=== PATIENT | female | born 1980 | race Caucasian/White ===

== ENCOUNTER 2017-04-19 04:09 | Inpatient (IN) ==
[2017-04-19 01:29] LABS: Amphetamine Screen,Urine Negative ng/mL (Cutoff=1000); Barbiturate Screen,Urine Negative ng/mL (Cutoff=200); Benzodiazepines Screen,Urine Negative ng/mL (Cutoff=200); Cannabinoid Screen,Urine Negative ng/mL (Cutoff = 50); Cocaine Screen,Urine Negative ng/mL (Cutoff= 300); Opiate Screen,Urine Negative ng/mL (Cutoff=300); Phencyclidine Screen,Urine Negative ng/mL (Cutoff=25)
[2017-04-19 03:29] LABS: Alanine Aminotransferase 9 Units/L (0-55); Aspartate Amino Transferase 13 Units/L (5-34); BUN/Creatinine Ratio 10 (6-26); Blood Urea Nitrogen 6 mg/dL (7-20); Lactate Dehydrogenase 184 Units/L (159-327); Uric Acid 3.9 mg/dL (2.6-6.0); eGFR For African Americans > 60 (> 60); eGFR For Non-African Americans > 60 (> 60)
[2017-04-19 03:30] LABS: Protein/Creatinine Ratio,Urine 0.28 mg/mg (0-0.20)
[2017-04-19 03:30] LABS: Basophils % 0.2 %; Eosinophils # 0.2 K/mcL (0.0-0.6); Eosinophils % 1.7 %; Hematocrit 30.9 % (35.3-44.9); Hemoglobin 9.5 g/dL (11.5-15.4); Immature Granulocytes % 0.5 % (0-4); Lymphocytes # 1.8 K/mcL (0.6-4.6); Lymphocytes % 14.7 %; Mean Corpuscular HGB Conc 30.7 g/dL (31.6-35.5); Mean Corpuscular Hemoglobin 24.4 pg (28.0-33.3); Mean Corpuscular Volume 79.4 fL (83.0-100.0); Mean Platelet Volume 11.2 fL (9.4-12.4); Monocytes # 0.7 K/mcL (0.0-1.3); Monocytes % 5.3 %; Platelet Count 235 K/mcL (140-400); Red Blood Count 3.89 M/mcL (3.82-4.97); Segmented Neutrophils % 77.6 %
[2017-04-19 03:55] LABS: Hypochromasia Present (Not Present); Large Platelets Present (Not Present); Microcytosis Present (Not Present); Neutrophils # 9.5 K/mcL (1.6-8.9); Platelet Clumps Few (Not Present)
[~2017-04-19 04:09] MED LIST: Famotidine 20 MG/2 ML VIAL IVP PRN; Metoclopramide 10 MG/2 ML VIAL IVP PRN; Naloxone 0.4 MG/ML INJ IVP PRN; Penicillin G Potassium 5,000,000 UNIT in D5% in Water (Mini-Bag+) 100 ML IVPB ONE
[2017-04-19] MEDS ORDERED: Ringers Solution, Lactated 1,000 ML IVC SCH (04:15)
--- NOTE | 2017-04-19 06:34 | OB/GYN History & Physical ---
Date of Encounter: 04/19/17 Time of Encounter: 06:25 Assessment and Plan (1) 36 weeks gestation of Current visit: Yes Status: Acute Admitted for spontaneous labor (2) Large for gestational age fetus affecting mother, antepartum, third trimester, single gestation Current visit: Yes Status: Acute 34 week ultrasound fetus 90%tile (3) Group B streptococcal infection in mother during Current visit: Yes Status: Acute PCN per protocol (4) AMA (advanced maternal age) multigravida 35+ Current visit: Yes Status: Acute Patient seen MFM and genetic screening WNL Qualifiers: Trimester: third trimester Qualified Code(s): O09.523 - Supervision of elderly multigravida, third trimester History of Present Illness Chief complaint: Spontaneous labor HPI: Ms. Sewell is a 36 year old female at 36w4d presents to labor and delivery with c/o contractions that started around 2200 on 04/18/2017. Patient denies LOF or VB. Patient reports +FM. Patient is AMA, LGA and GBS + in initial urinalysis in office. Blood type: B Negative, Rubella: Immune, Hep B: nonreactive, GBS: Positive. PCN protocol started at 0445. Past Med Surg Social Fam HX - Past Medical History Source: patient Medical history: no medical history Psychiatric history: depression - Past Surgical History Surgical History: no surgical history - Social History Smoking Status: Never smoker Smokeless Tobacco Status: No Alcohol use: none Drug use: none Occupational status: employed Current living situation: Home - Independent Activity Level: Independent ambulation Recent Out of Country Travel Within the Last 8 Weeks: No Exposure or Possible Exposure to Illness During Travel: No - Family History Mother Living Status: Still Living Obstetrical History - Pregnancies : 4 Para: 3 Term: 3 : 0 Ab's: 0 Livin Medications and Allergies Citalopram Hydrobromide [Celexa] 40 mg PO DAILY 04/19/17 [History] Vit/Iron Fumarate/FA [ Tablet] 1 each PO DAILY 04/19/17 [ History] 3 Allergy/AdvReac Type Severity Reaction Status Date / Time doxycycline AdvReac Rash Verified 04/19/17 01:06 Review of System OB - Constitutional Constitutional ROS IM: no fever(s), no headache(s) - Cardiovascular Cardiovascular: no chest pain, no edema, no lightheadedness, no palpitations, no syncope - Respiratory Respiratory: no dyspnea - Gastrointestinal Gastrointestinal: no constipation, no diarrhea, no heartburn, no nausea, no vomiting - Genitourinary Genitourinary: no abnormal vaginal bleeding, no dysuria, no flank pain, no vaginal discharge, no vaginal odor, no vaginal pruritis Exam - Constitutional Constitutional: well developed, well nourished, no acute distress, average body habitus - HEENT HEENT: Normocephaly, Mucus Membranes Moist - Neck Neck exam: full ROM, supple - Lungs Respiratory exam: CTAB - Cardiovascular Cardiovascular exam: RRR, +S1, +S2 - Abdomen Abdomen: Present: bowel sounds normal, gravid, non tender - Extremities Extremities exam: full ROM, normal capillary refill, normal inspection Deep Tendon Reflex Grade: 2+ Normal - Cervix Dilation: 7 Effacement: 90 Station: -1 - Uterus Uterus exam: Present: normal size, normal contour - Anus/Rectum Anus/Rectum: Present: normal perianal skin - Comments Comments: FHR 145 bpm moderate variability +15x15 accels no decels noted. Contractions 1- 3 min apart. CAt. 1 tracing. Results Result Diagrams: 04/19/17 03:04 04/19/17 03:04 Abnormal lab results WBC 12.2 K/mcL (4.3-11.1) H 04/19/17 03:04 Hgb 9.5 g/dL (11.5-15.4) L 04/19/17 03:04 Hct 30.9 % (35.3-44.9) L 04/19/17 03:04 MCV 79.4 fL (83.0-100.0) L 04/19/17 03:04 MCH 24.4 pg (28.0-33.3) L 04/19/17 03:04 MCHC 30.7 g/dL (31.6-35.5) L 04/19/17 03:04 Neutrophils # 9.5 K/mcL (1.6-8.9) H 04/19/17 03:04 Clumped Platelets Few (Not Present) A 04/19/17 03:04 Large Platelets Present (Not Present) A 04/19/17 03:04 Hypochromasia Present (Not Present) A 04/19/17 03:04 Microcytosis Present (Not Present) A 04/19/17 03:04 BUN 6 mg/dL (7-20) L 04/19/17 03:04 Protein/Creatinin Ratio 0.28 mg/mg (0-0.20) H 04/19/17 02:57 Urine Total Protein 45 mg/dL (1-14) H 04/19/17 02:57 All other labs normal. - VTE Reasons for not Prescribing Prophylaxis: Treatment not Indicated - Low risk for VTE
[2017-04-19] MEDS ORDERED: Bupivacaine-MPF 0.25% 10 ML VIAL ONE (06:48)
[2017-04-19] MEDS ORDERED: Epidural Premix (fent/bupiv) 110 ML EP ONE ×2 (06:48→13:12)
[2017-04-19] MEDS ORDERED: *HR* FentaNYL (PF) 100 MCG/2 ML VIAL ONE (06:48)
--- NOTE | 2017-04-19 07:35 | Anesthesia Evaluation PreOp ---
Date of Encounter: 04/19/17 Time of Encounter: 07:32 - Past History Planned Operation: OCTAVIO Cardiac History: Denies any Significant Hx Pulmonary History: Denies Any Significant HX BLOCK BREAKER OPERATOR History: Denies Any Significant HX Other Medical History: Denies Any Significant HX Anesthesia History: No Prior Anesthetic Complications (denies personal h/o RA or GA complications; denies family h/o GA complications), Past Anesthesia (OCTAVIO x 2; GA x 1) : Yes Test: Positive Alcohol Use: none Drug use: none Medications and Allergies Citalopram Hydrobromide [Celexa] 40 mg PO DAILY 04/19/17 [History] Vit/Iron Fumarate/FA [ Tablet] 1 each PO DAILY 04/19/17 [ History] 3 Allergy/AdvReac Type Severity Reaction Status Date / Time doxycycline AdvReac Rash Verified 04/19/17 01:06 - Meds/Allergy Pre-op Review Medications Reviewed: Yes Allergies Reviewed: Yes Beta Blockers on Current Med List: No Anesthesia Results - Labs 04/19/17 03:04 04/19/17 03:04 Anesthesia Exam 131/86, HR 94 O2 Sat Height 1.7 m Weight 82.554 kg NPO (# of Hours): solids > 8hrs Pain Scale: 6 Pain Scale Used: Numeric (1 - 10) - HEENT Pupil (Motor): Pupils equal Mallampati: II Teeth: Normal Oral Opening: Greater than 3 - BLOCK BREAKER OPERATOR LOC: Oriented BLOCK BREAKER OPERATOR Motor: Normal RUE, Normal LUE, Normal RLE, Normal LLE, Normal Face BLOCK BREAKER OPERATOR Sensory: Normal: RUE, LUE, RLE, LLE, Face - Cardiac Rhythm: Regular Murmur: None - Pulmonary Breath Sounds: bilateral Clear Respiratory Effort: Symmetrical Anesthesia Assess/Plan ASA Score: 2 Modified Parag Scale for Level of Consciousness: Cooperative, oriented, and tranquil Anesthetic Plan: Regional Autologous Blood: No Monitoring Plan: Standard Monitors Recovery Plan: Other
[2017-04-19] MEDS ORDERED: Bupivacaine-MPF 0.25% 10 ML VIAL EP ONE (07:38)
[2017-04-19] MEDS ORDERED: *HR* FentaNYL (PF) 100 MCG/2 ML VIAL EP ONE (07:38)
--- NOTE | 2017-04-19 07:38 | Anesthesia Procedures ---
Date of Encounter: 04/19/17 Time of Encounter: 07:36 Procedures: Anesthesia - Epidural/Spinal Patient ID/Chart reviewed: Yes Patient examined: Yes OB Eval: Gestational age: 36 weeks 4 days OB Eval: : 4 OB Eval: Hx Para: 3 OB Eval: Dilated at (cm): 7 OB Eval: Contractions: Non-stressed pattern Consent Obtained: Yes Supplemental Oxygen: None/Room Air Site Prep: Aseptic Technique, Sterile prep and drape, Povidone-Iodine 1% Patient position: upright Local Anesthetic: Lidocaine 1% Amount of Local Anesthetic used: 3 Touhy Needle Gauge: 18 Touhy Needle Depth (cm): 4 Catheter Depth at Skin (cm): 10 Test Dose (1.5% Lido + Epi): Volume given (mls): 3 Test Dose Result: Negative Loading Dose: 0.25% Marcaine (mls): 5 Loading Dose: Fentanyl (mcg): 100 Loading Dose Administered: Thru Catheter Infusion Med: 0.125% Bupivacaine w/ 2 mcg/ml Fentanyl Infusion Rate (mls/hr): 14 (w/ demand bolus of 5mL q30min PRN) Catheter Secured in Place: Tegaderm, Tape Interspace Used: L3-L4 Loss of Resistance (JERONIMO): Yes Blood: No CSF: No Paresthesia: No Vitals + FHT's: please see Ana Maria HANSEN's electronic documentation for VS
[2017-04-19] MEDS ORDERED: Epidural Premix (fent/bupiv) 110 ML EP SCH (07:45)
[2017-04-19] MEDS ORDERED: EPHEDrine 50 MG/ML VIAL ONE (08:17)
[2017-04-19] MEDS: Penicillin G Potassium 2,500,000 UNIT in D5% in Water 100 ML IVPB SCH ×2 (08:26→12:41)
[2017-04-19] MEDS ORDERED: Acetaminophen 325 MG TABLET PO PRN ×2 (12:02→18:54)
--- NOTE | 2017-04-19 12:13 | OB Labor Progress Note ---
Date of Encounter: 04/19/17 Time of Encounter: 12:12 Labor Progress Note - Subjective Subjective: Pt comfortable with epidural. - Cervix Cervix: 9/90/0 - Heart Tones Heart Tones: Category I - [place]: irregular - Interventions Interventions: IUPC placed - Plan Plan: Will augment with pitocin if needed. Anticipate .
[2017-04-19] MEDS ORDERED: Oxytocin 20 units/ LR 1000 mL 20 UNIT/1,000 ML BAG IVC SCH ×2 (13:00→18:54)
--- NOTE | 2017-04-19 16:17 | OB/GYN Procedure Note ---
Delivery - Delivery Date: 04/19/17 Provider: Cali Horner Intrapartum events: none Delivery induction: AROM Delivery monitor: external uterine, internal FHT Anesthesia: epidural Estimated Blood Loss: 300 - Infant (s) Infant A Delivery Date: 04/19/17 Infant Delivery Time: 15:54 Presentation: vertex Position: OP Route of delivery: Gender: Male Viability: Viable Pounds: 8 Ounces: 2 at 1 minute: 8 at 5 mins: 9 Shoulder Dystocia: not encountered Specimens collected: cord blood Placenta: spontaneous - Repair Episiotomy: none Laceration Description: None - Complications Delivery complications: none - Disposition Mom disposition: stable in LDR disposition: stable in LDR - Comments Comments: Pt s/p of liveborn male from direct OP presentation. No dystocia. No lacerations. Spontaneous delivery of normal placenta. EBL 300cc. Mother and infant recovered in LDR.
[2017-04-19] MEDS ORDERED: Measles/Mumps/Rubella Vacc 0.5 ML VIAL SQ PRN (18:54)
[2017-04-19] MEDS ORDERED: Rho Immune Globulin 1,500 UNIT SYRINGE IM PRN (18:54)
[2017-04-19] MEDS ORDERED: Ibuprofen 600 MG TABLET PO PRN (21:13)
[2017-04-19] MEDS: Ibuprofen 600 MG TABLET PO PRN (21:31)
[2017-04-20 05:43] LABS: Basophils % 0.1 %; Eosinophils # 0.2 K/mcL (0.0-0.6); Hematocrit 26.7 % (35.3-44.9); Hemoglobin 8.2 g/dL (11.5-15.4); Immature Granulocytes % 0.5 % (0-4); Lymphocytes # 1.7 K/mcL (0.6-4.6); Lymphocytes % 14.3 %; Mean Corpuscular HGB Conc 30.7 g/dL (31.6-35.5); Mean Corpuscular Hemoglobin 24.5 pg (28.0-33.3); Mean Corpuscular Volume 79.7 fL (83.0-100.0); Mean Platelet Volume 10.3 fL (9.4-12.4); Monocytes # 0.7 K/mcL (0.0-1.3); Monocytes % 5.8 %; Neutrophils # 9.3 K/mcL (1.6-8.9); Platelet Count 305 K/mcL (140-400); Red Blood Count 3.35 M/mcL (3.82-4.97); Red Cell Distribution Width 14.1 % (11.5-14.5); Segmented Neutrophils % 77.3 %
[2017-04-20] MEDS: Ibuprofen 600 MG TABLET PO PRN (08:12)
--- NOTE | 2017-04-20 08:27 | Discharge Summary ---
Date of Encounter: 04/20/17 Time of Encounter: 08:25 - Discharge Diagnosis (1) Status post vaginal delivery Priority: Primary Status: Acute Comments: s/p , patient doing very well, ok for discharge - Discharge Medications Prescriptions: Breast Pump [BREAST PUMP] 1 each .ROUTE AD #1 each Home Medications: Citalopram Hydrobromide [Celexa] 40 mg PO DAILY 04/19/17 [History] Vit/Iron Fumarate/FA [ Tablet] 1 each PO DAILY 04/19/17 [ History] Breast Pump [BREAST PUMP] 1 each .ROUTE AD #1 each 04/20/17 [Rx] Allergies/Adverse Reactions: 3 Allergy/AdvReac Type Severity Reaction Status Date / Time doxycycline AdvReac Rash Verified 04/19/17 01:06 Data Procedures and tests throughout hospitalization: Laboratory Tests 04/19/17 04/19/17 04/19/17 01:13 02:57 03:04 WBC 12.2 H RBC 3.89 Hgb 9.5 L Hct 30.9 L MCV 79.4 L MCH 24.4 L MCHC 30.7 L RDW 14.0 Plt Count 235 MPV 11.2 Immature Gran % 0.5 Seg Neutrophils % 77.6 Lymphocytes % 14.7 Monocytes % 5.3 Eosinophils % 1.7 Basophils % 0.2 Neutrophils # 9.5 H Lymphocytes # 1.8 Monocytes # 0.7 Eosinophils # 0.2 Basophils # 0.0 Clumped Platelets Few A Large Platelets Present A Hypochromasia Present A Microcytosis Present A BUN Creatinine Est GFR ( Amer) Est GFR (Non-Af Amer) BUN/Creatinine Ratio Uric Acid AST ALT Lactate Dehydrogenase Urine Creatinine 160 Protein/Creatinin Ratio 0.28 H Urine Total Protein 45 H Urine Opiates Screen Negative Ur Barbiturates Screen Negative Ur Phencyclidine Scrn Negative Ur Amphetamines Screen Negative U Benzodiazepines Scrn Negative Urine Cocaine Screen Negative U Marijuana (THC) Screen Negative Baby's Blood Type Mother's Blood Type Rhogam Indicated 04/19/17 04/19/17 04/20/17 03:04 18:07 05:32 WBC 12.0 H RBC 3.35 L Hgb 8.2 L Hct 26.7 L MCV 79.7 L MCH 24.5 L MCHC 30.7 L RDW 14.1 Plt Count 305 MPV 10.3 Immature Gran % 0.5 Seg Neutrophils % 77.3 Lymphocytes % 14.3 Monocytes % 5.8 Eosinophils % 2.0 Basophils % 0.1 Neutrophils # 9.3 H Lymphocytes # 1.7 Monocytes # 0.7 Eosinophils # 0.2 Basophils # 0.0 Clumped Platelets Large Platelets Hypochromasia Microcytosis BUN 6 L Creatinine 0.58 Est GFR ( Amer) > 60 Est GFR (Non-Af Amer) > 60 BUN/Creatinine Ratio 10 Uric Acid 3.9 AST 13 ALT 9 Lactate Dehydrogenase 184 Urine Creatinine Protein/Creatinin Ratio Urine Total Protein Urine Opiates Screen Ur Barbiturates Screen Ur Phencyclidine Scrn Ur Amphetamines Screen U Benzodiazepines Scrn Urine Cocaine Screen U Marijuana (THC) Screen Baby's Blood Type B RH NEGATIVE Mother's Blood Type B RH NEGATIVE Rhogam Indicated NO Labs on day of discharge: Labs from last 24 hours 04/20/17 04/19/17 05:32 18:07 WBC 12.0 H RBC 3.35 L Hgb 8.2 L Hct 26.7 L MCV 79.7 L MCH 24.5 L MCHC 30.7 L RDW 14.1 Plt Count 305 MPV 10.3 Immature Gran % 0.5 Seg Neutrophils % 77.3 Lymphocytes % 14.3 Monocytes % 5.8 Eosinophils % 2.0 Basophils % 0.1 Neutrophils # 9.3 H Lymphocytes # 1.7 Monocytes # 0.7 Eosinophils # 0.2 Basophils # 0.0 Baby's Blood Type B RH NEGATIVE Mother's Blood Type B RH NEGATIVE Rhogam Indicated NO Date of admission: 04/19/17 04:09 Primary care physician: Leatha Hernandez Consults: 04/19/17 18:54 Consult to Car Customizer [CONS] Routine Comment: Vaginal delivery, consult needed - Patient Status Disposition: Home, Self-Care Condition: Good Functional capacity at discharge: independent ambulation Overall status at discharge: patient is progressing back to baseline - Discharge Instructions Follow Up With: Leatha Hernandez MD [Primary Care Provider] - Hospital Course FURNACE LOADER Time Attestation: Total time spent providing and/or coordinating discharge services: Exam - Constitutional Vitals: Temp Pulse Resp BP Pulse Ox 97.5 F L 84 16 120/79 99 04/20/17 04:00 04/20/17 04:00 04/20/17 04:00 04/20/17 04:00 04/20/17 04:00 General appearance IM: A&O X 3 - Respiratory Respiratory exam: Present: CTAB - Cardiovascular Cardiovascular exam IM: Present: RRR - GI/Abdominal GI/Abdominal exam IM: normal bowel sounds - VTE Reasons for not Prescribing Prophylaxis: Treatment not Indicated - Low risk for VTE
[2017-04-20] MEDS ORDERED: Prenatal Vit/FA 1 EACH TABLET PO SCH (09:00)
[2017-04-20 17:07] VITALS: BP 114/78
== END 2017-04-20 13:30 | disposition home or self-care (01) | DRG 775 ==
LOC: 1NENULAB → 1NENUOBS 18:40
PROVIDERS: ADMIT Advanced Practice Midwife; ATTEND Advanced Practice Midwife

== ENCOUNTER 2017-06-10 02:44 | Observation (INO) ==
[2017-06-10] MEDS ORDERED: Ondansetron ODT 4 MG TAB.RAPDIS SL ONE (03:20)
[2017-06-10] MEDS ORDERED: Hyoscyamine SL 0.125 MG TAB.SUBL SL STA (03:20)
[2017-06-10 03:33] LABS: Basophils % 0.3 %; Eosinophils # 0.3 K/mcL (0.0-0.6); Eosinophils % 1.8 %; Hematocrit 37.2 % (35.3-44.9); Hemoglobin 11.3 g/dL (11.5-15.4); Immature Granulocytes % 0.3 % (0-4); Lymphocytes # 1.1 K/mcL (0.6-4.6); Lymphocytes % 7.6 %; Mean Corpuscular HGB Conc 30.4 g/dL (31.6-35.5); Mean Corpuscular Hemoglobin 24.8 pg (28.0-33.3); Mean Corpuscular Volume 81.8 fL (83.0-100.0); Mean Platelet Volume 10.4 fL (9.4-12.4); Monocytes # 0.7 K/mcL (0.0-1.3); Monocytes % 4.5 %; Neutrophils # 12.5 K/mcL (1.6-8.9); Platelet Count 364 K/mcL (140-400); Red Blood Count 4.55 M/mcL (3.82-4.97); Red Cell Distribution Width 16.8 % (11.5-14.5); Segmented Neutrophils % 85.5 %
--- NOTE | 2017-06-10 03:37 | Emergency Department Note ---
Disposition Clinical Impression: RUQ pain, Biliary colic, Elevated transaminase level Disposition: Admitted As Inpatient Condition: Undetermined Referrals: Leatha Hernandez MD [Primary Care Provider] - Forms: ED Satisfaction Letter, Work/School Release Time of Disposition: 06:03 Abdominal Pain HPI - General Chief Complaint: ED Abdominal Pain Stated Complaint: Abd Pain, NV Time Seen by Provider: 06/10/17 02:46 Source: patient Mode of arrival: ambulatory Limitations: no limitations Nursing Notes Reviewed: Yes Vital Signs Reviewed: Yes - History of Present Illness HPI Narrative: 36-year-old female with history of previous biliary colic arrives to [facility] emergency department complaining of right upper quadrant pain similar to previous biliary colic in the past that started roughly 4 hours ago. The patient states she ate a powdered doughnut and she began complaining of right upper quadrant pain roughly an hour after that. The patient has been experiencing nausea and vomiting as well. The patient states that this has been ongoing and that is why she came to the emergency department. The patient states she is supposed to have a cholecystectomy in 3 days. Patient denies any other complaints at this time. Pt Subjective Complaint: abdominal pain Onset (ago): hour(s) (3) Consistency: intermittent Location: RUQ Pain Severity: moderate Pain Scale: 7 Quality: cramping Radiation: none Migration to: no migration Improves with: nothing Worsens with: nothing Context: history of similar episodes Associated symptoms: Reports: nausea, vomiting - Related Data Home Medications Medication Instructions Recorded Confirmed Citalopram Hydrobromide [Celexa] 40 mg PO DAILY 04/19/17 04/19/17 Vit/Iron Fumarate/FA 1 each PO DAILY 04/19/17 04/19/17 [ Tablet] Previous Rx's Medication Instructions Recorded Breast Pump [BREAST PUMP] 1 each .ROUTE AD #1 each 04/20/17 Ibuprofen [Motrin] 600 mg PO Q6HR PRN #60 tab 04/20/17 Dicyclomine [Bentyl] 20 mg PO QID PRN #20 capsule 05/16/17 HYDROcodone/Acet 5/325 mg [[place] 1 - 2 tab PO Q4H PRN 7 Days #20 tab 05/16/17 5-325 mg] Allergies Allergy/AdvReac Type Severity Reaction Status Date / Time doxycycline AdvReac Rash Verified 05/15/17 21:55 All systems ED: reviewed and negative except as stated. Constitutional: Denies: fever, chills, weakness ENT ED: Denies: congestion Cardiovascular: Denies: chest pain Respiratory: Denies: dyspnea Gastrointestinal: Reports: abdominal pain, nausea, vomiting. Denies: diarrhea, constipation, hematemesis, melena, hematochezia Genitourinary: Denies: urgency, dysuria Musculoskeletal: Denies: back pain Neurological: Denies: headache Abdominal Pain PMH - Past Medical History Medical history: Reports: no medical history Female Surgical History: Reports: Adenoidectomy, Tonsillectomy Psychiatric history: Reports: depression - Social History Smoking status: Never smoker Alcohol use: Reports: none Drug use: Reports: none Physical Exam - General Limitations: no limitations General appearance: alert, in no apparent distress - Head Head exam: atraumatic, normocephalic, normal inspection - Eye Eye exam: Present: normal appearance, PERRL, EOMI - ENT ENT exam: normal exam, normal oropharynx, mucous membranes moist - Neck Neck exam: Present: normal inspection, full ROM, trachea midline - Chest Chest inspection: Present: normal inspection, symmetric chest wall rise - Respiratory Respiratory exam: Present: normal lung sounds bilaterally - Cardiovascular Cardiovascular exam: Present: regular rate, normal rhythm, normal heart sounds - Abdominal Exam Abdominal exam: Present: soft, tenderness (RUQ). Absent: Non-Tender, distention , guarding, rebound, rigidity, Dao's sign Abdominal tenderness: Present: RUQ, moderate - Extremities Exam Extremities exam: Present: normal inspection, full ROM. Absent: tenderness, pedal edema Course - Reevaluation(s) Reevaluation #1: Patient has been expressing continued pain. She has taken 2 doses of fentanyl as well as Levsin and Zofran. The patient still appears slightly uncomfortable. The patient has new elevation of transaminases. The gallbladder demonstrates no signs of cholecystitis on ultrasound but the patient still remains very comfortable. Given the fact that the patient is due to have a cholecystectomy in 2 days, we will contact surgeon to determine plan of care. Time: 05:21 Vital Signs Temperature 97.4 F L 06/10/17 02:46 Pulse Rate 96 06/10/17 02:46 Respiratory Rate 16 06/10/17 02:46 Blood Pressure 137/93 06/10/17 02:46 O2 Sat by Pulse Oximetry 98 06/10/17 02:46 Temperature 97.4 F L 06/10/17 02:46 Pulse Rate 80 06/10/17 04:56 Respiratory Rate 12 06/10/17 04:56 Blood Pressure 142/97 06/10/17 04:56 O2 Sat by Pulse Oximetry 97 06/10/17 04:56 Oxygen Delivery Oxygen Delivery Room Air Abdominal Pain - MDM Narrative Medical decision making narrative: Workup in the emergency department demonstrates a leukocytosis that is new. In addition the patient has elevated transaminases which is also new. The patient' s bedside ultrasound as well as ultrasound that was formal demonstrate no cholecystitis. Given the patient's new transaminase elevation as well as her cytosis I am concerned that the patient is experiencing symptoms that need to be addressed by the surgeon. After speaking with Dr. bose in surgery, he agreed to admit the patient to his service. He recommended long-acting pain control. We had been administering short-acting pain control as the patient stated that she may need to drive home. The patient agrees with plan and will be admitted to Dr. bose's service. - Medical Records Medical records reviewed: Yes I reviewed the patient's medical records. - Lab Data Lab results reviewed: Yes I reviewed the patient's lab results. Result diagrams: 06/10/17 03:27 06/10/17 03:27 Lab Results 06/10/17 06/10/17 06/10/17 Range/Units 03:27 03:27 05:05 WBC 14.6 H (4.3-11.1) K/mcL RBC 4.55 (3.82-4.97) M/mcL Hgb 11.3 L (11.5-15.4) g/dL Hct 37.2 (35.3-44.9) % MCV 81.8 L (83.0-100.0) fL MCH 24.8 L (28.0-33.3) pg MCHC 30.4 L (31.6-35.5) g/dL RDW 16.8 H (11.5-14.5) % Plt Count 364 (140-400) K/mcL MPV 10.4 (9.4-12.4) fL Immature Gran % 0.3 (0-4) % Seg Neutrophils % 85.5 % Lymphocytes % 7.6 % Monocytes % 4.5 % Eosinophils % 1.8 % Basophils % 0.3 % Neutrophils # 12.5 H (1.6-8.9) K/mcL Lymphocytes # 1.1 (0.6-4.6) K/mcL Monocytes # 0.7 (0.0-1.3) K/mcL Eosinophils # 0.3 (0.0-0.6) K/mcL Basophils # 0.0 (0.0-0.2) K/mcL Sodium 142 (136-145) mEq/L Potassium 3.6 (3.5-4.5) mEq/L Chloride 103 (98-109) mEq/L Carbon Dioxide 31 H (19-29) mEq/L BUN 14 (7-20) mg/dL Creatinine 0.73 (0.57-1.11) mg/dL Est GFR ( Amer) > 60 (> 60) Est GFR (Non-Af Amer) > 60 (> 60) BUN/Creatinine Ratio 19 (6-26) Glucose 129 H (70-99) mg/dL Calculated Osmolality 296 (280-300) Calcium 9.6 (8.6-10.8) mg/dL Total Bilirubin 0.6 (0.2-1.2) mg/dL Direct Bilirubin 0.3 (0.0-0.5) mg/dL Indirect Bilirubin 0.3 (0.0-1.2) mg/dL AST 91 H (5-34) Units/L ALT 88 H (0-55) Units/L Alkaline Phosphatase 112 (38-126) Units/L Serum Total Protein 7.5 (6.0-8.3) g/dL Albumin 4.0 (3.5-5.0) g/dL Globulin 3.5 (2.4-3.5) g/dL Albumin/Globulin Ratio 1.1 (1.1-2.2) Urine Color Yellow (Yellow) Urine Clarity Clear (Clear) Urine pH 7.5 (5.0-8.0) pH Units Ur Specific [place] 1.013 (1.010-1.025) Urine Protein Trace (Neg-Trace) mg/dL Urine Glucose (UA) Normal (Normal) mg/dL Urine Ketones Negative (Negative) mg/dL Urine Blood Small H (Negative) Urine Nitrite Negative (Negative) Urine Bilirubin Negative (Negative) Urine Urobilinogen Normal (Normal) mg/dL Ur Leukocyte Esterase Negative (Negative) Urine Microscopic RBC 0-3 (0-3) per hpf Urine Microscopic WBC 0-3 (0-3) per hpf Ur Squamous Epith Cells Many H (None-Few) per lpf Triple Phos Crystals Present Urine Bacteria Few (None-Few) per hpf Hyaline Casts None Seen (None-Few) per lpf Urine Mucus Few (Few) Ur Culture Indicated? NO (NO) - Radiology Data Radiology results reviewed: Yes I reviewed the patient's radiology results. Attestation Statement - Attestation Attestation: I examined this patient and my medical decision-making was reviewed with the Resident Physician. I agree with the documented findings, disposition and treatment plan as described except to the extent set forth below. Findings consistent with gallbladder disease. Scheduled to have cholecystectomy this week. She does have transaminitis as well as leukocytosis. I am concerned about acute cholecystitis. We are pending formal right upper quadrant ultrasound. Pain control, antiemetics will be administered.
[2017-06-10 03:46] LABS: Alanine Aminotransferase 88 Units/L (0-55); Albumin/Globulin Ratio 1.1 (1.1-2.2); Alkaline Phosphatase 112 Units/L (38-126); Aspartate Amino Transferase 91 Units/L (5-34); BUN/Creatinine Ratio 19 (6-26); Bilirubin,Direct 0.3 mg/dL (0.0-0.5); Bilirubin,Indirect 0.3 mg/dL (0.0-1.2); Bilirubin,Total 0.6 mg/dL (0.2-1.2); Blood Urea Nitrogen 14 mg/dL (7-20); Calcium 9.6 mg/dL (8.6-10.8); Carbon Dioxide 31 mEq/L (19-29); Chloride 103 mEq/L (98-109); Globulin 3.5 g/dL (2.4-3.5); Glucose 129 mg/dL (70-99); Osmolality,Calculated 296 (280-300); Potassium 3.6 mEq/L (3.5-4.5); Sodium 142 mEq/L (136-145); Total Protein 7.5 g/dL (6.0-8.3); eGFR For African Americans > 60 (> 60); eGFR For Non-African Americans > 60 (> 60)
[2017-06-10] MEDS ORDERED: *HR* FentaNYL (PF) 100 MCG/2 ML VIAL IVP ONE ×2 (03:52→05:20)
[2017-06-10 05:21] LABS: Bilirubin,Urine Negative (Negative); Blood,Urine Small (Negative); Color,Urine Yellow (Yellow); Glucose,Urine (UA) Normal (Normal); Ketones,Urine Negative (Negative); Leukocyte Esterase,Urine Negative (Negative); Nitrite,Urine Negative (Negative); PH,Urine 7.5 pH Units (5.0-8.0); Protein,Urine Trace mg/dL (Neg-Trace); Specific Gravity,Urine 1.013 (1.010-1.025); Urobilinogen,Urine Normal (Normal)
[2017-06-10 05:23] LABS: Hyaline Casts,Urine None Seen per lpf (None-Few); RBC,Urine 0-3 per hpf (0-3); Squamous Epithelial Cell,Urine Many per lpf (None-Few); WBC,Urine 0-3 per hpf (0-3)
[2017-06-10 05:24] LABS: Clarity,Urine Clear (Clear)
[2017-06-10 05:39] LABS: Bacteria,Urine Few per hpf (None-Few); Mucus,Urine Few (Few); Triple Phosphate Crystal,Urine Present
[2017-06-10] MEDS ORDERED: *HR* HYDROmorphone (PF) 1 MG/ML SYRINGE IVP ONE (05:54)
--- NOTE | 2017-06-10 10:10 | Anesthesia Evaluation PreOp ---
Date of Encounter: 06/10/17 Time of Encounter: 10:55 - Past History Planned Operation: lap annette Cardiac History: Denies any Significant Hx Pulmonary History: Denies Any Significant HX GLOBAL CREATIVE CHAIRMAN History: Denies Any Significant HX Other Medical History: Denies Any Significant HX, Other (delivered March) Anesthesia History: No Prior Anesthetic Complications, Past Anesthesia : No Test: Negative (06-05-17) Alcohol Use: none Drug use: none Medications and Allergies Citalopram Hydrobromide [Celexa] 40 mg PO DAILY 04/19/17 [History] Vit/Iron Fumarate/FA [ Tablet] 1 each PO DAILY 04/19/17 [ History] Breast Pump [BREAST PUMP] 1 each .ROUTE AD #1 each 04/20/17 [Rx] Ibuprofen [Motrin] 600 mg PO Q6HR PRN #60 tab 04/20/17 [Rx] Dicyclomine [Bentyl] 20 mg PO QID PRN #20 capsule 05/16/17 [Rx] HYDROcodone/Acet 5/325 mg [[place] 5-325 mg] 1 - 2 tab PO Q4H PRN 7 Days #20 tab 05/16/17 [Rx] 3 Allergy/AdvReac Type Severity Reaction Status Date / Time doxycycline AdvReac Rash Verified 05/15/17 21:55 - Meds/Allergy Pre-op Review Medications Reviewed: Yes Allergies Reviewed: Yes Beta Blockers on Current Med List: No Anesthesia Results - Labs 06/10/17 03:27 06/10/17 03:27 Anesthesia Exam Selected Entries 06/10/17 07:02 Temperature 98.4 F Pulse Rate 79 Respiratory Rate 15 Blood Pressure 122/78 O2 Sat by Pulse Oximetry 99 Weight: 73kg NPO (# of Hours): 8 - HEENT Pupil (Motor): EOMI Mallampati: II Teeth: Normal Oral Opening: Greater than 3 - GLOBAL CREATIVE CHAIRMAN LOC: Oriented GLOBAL CREATIVE CHAIRMAN Motor: Normal RUE, Normal LUE, Normal RLE, Normal LLE, Normal Face GLOBAL CREATIVE CHAIRMAN Sensory: Normal: RUE, LUE, RLE, LLE, Face - Cardiac Rhythm: Regular Murmur: None - Pulmonary Breath Sounds: bilateral Clear Respiratory Effort: Symmetrical Anesthesia Assess/Plan ASA Score: 1 Modified Parag Scale for Level of Consciousness: Cooperative, oriented, and tranquil Anesthetic Plan: General Monitoring Plan: Standard Monitors Recovery Plan: PACU (discussed GA, agrees to proceed)
--- NOTE | 2017-06-10 10:33 | General Surg History&Physical ---
Date of Encounter: 06/10/17 Time of Encounter: 10:15 History of Present Illness Chief complaint: Recurrent right upper quadrant abdominal pain, cholecystitis cholelithiasis HPI: Ms. Sewell is a 36 year old female admitted to [facility] after presenting to the emergency department with recurrent right upper quadrant abdominal pain. She has known cholecystitis/cholelithiasis related to a previous presentation to [facility] on 05/15/17. Laparoscopic cholecystectomy is scheduled for 06/12/2017, however, with the recurrent symptoms surgery has been "moved up" and will be completed today. Past medical history: Unchanged from my office encounter dated 05/27/17 and PAT encounter dated 06/05/17 Patient with no significant medical history except for depression Surgical history: T&A, age 4 Allergies: Doxycycline Medications: Celexa 40 mg by mouth daily Zyrtec 10 mg by mouth daily vitamins 1 by mouth daily Social history: Patient is , lives with and 4 children; G4, P4; she is currently 7 weeks She does not smoke or use illicit drugs; patient admitted to smoking in college, approximately half pack daily for 3 years. she consumes an occasional alcoholic beverage but none in the past 10 months. Family history: Mother, sister, maternal at with breast cancer; a sister status post stroke; paternal grandfather with heart disease On physical examination: Age-appropriate woman currently resting comfortably in hospital bed. The acute distress with which she presented to [facility] EGD has been controlled The patient is afebrile, 98.4, pulse 79, respirations 15, blood pressure 122/ 78; SPO2 on room air 99% Skin: Warm, no obvious jaundice Lungs: Clear, minimal pain on deep inspiration, right subcostal area Cardiac: Regular rate, no appreciable murmurs Abdomen: Minimal right upper quadrant tenderness but no associated masses. No rebound. Active bowel sounds Extremities: No obvious clubbing cyanosis or edema Current Laboratories: White count 14.6, hemoglobin 11.3 with hematocrit 37.2 ( associated anemia much improved) Platelet count 364,000; neutrophils 12.5%. Electrolytes, BUN, creatinine within normal limits Bilirubin 0.6, AST 91, ALT 88, alkaline phosphatase 112 (previously all LFTs were within normal limits) Impression: Acute onset right upper quadrant abdominal pain; likely biliary colic secondary to cholelithiasis Laparoscopic cholecystectomy was scheduled for 06/12/17 but with the new onset of symptoms we will proceed today. The procedure, including risks and benefits, has been reviewed. We will proceed with surgery when possible today. Past Med Surg Social Fam HX - Past Medical History Medical history: no medical history Psychiatric history: depression - Past Surgical History Surgical History: no surgical history - Social History Smoking Status: Never smoker Smokeless Tobacco Status: No Alcohol use: none Drug use: none - Family History Mother Living Status: Still Living Medications and Allergies Citalopram Hydrobromide [Celexa] 40 mg PO DAILY 04/19/17 [History] Vit/Iron Fumarate/FA [ Tablet] 1 each PO DAILY 04/19/17 [ History] Breast Pump [BREAST PUMP] 1 each .ROUTE AD #1 each 04/20/17 [Rx] Ibuprofen [Motrin] 600 mg PO Q6HR PRN #60 tab 04/20/17 [Rx] Dicyclomine [Bentyl] 20 mg PO QID PRN #20 capsule 05/16/17 [Rx] HYDROcodone/Acet 5/325 mg [[place] 5-325 mg] 1 - 2 tab PO Q4H PRN 7 Days #20 tab 05/16/17 [Rx] 3 Allergy/AdvReac Type Severity Reaction Status Date / Time doxycycline AdvReac Rash Verified 05/15/17 21:55 Review of Systems All systems PM: A 10-system review of systems was performed and is negative for pertinent findings except as documented above in the HPI. General Surgery Exam Initial Vital Signs Temp Pulse Resp BP Pulse Ox 97.4 F L 96 16 137/93 98 06/10/17 02:46 06/10/17 02:46 06/10/17 02:46 06/10/17 02:46 06/10/17 02:46 Results - Labs 06/10/17 03:27 06/10/17 03:27 Abnormal lab results WBC 14.6 K/mcL (4.3-11.1) H 06/10/17 03:27 Hgb 11.3 g/dL (11.5-15.4) L 06/10/17 03:27 MCV 81.8 fL (83.0-100.0) L 06/10/17 03:27 MCH 24.8 pg (28.0-33.3) L 06/10/17 03:27 MCHC 30.4 g/dL (31.6-35.5) L 06/10/17 03:27 RDW 16.8 % (11.5-14.5) H 06/10/17 03:27 Neutrophils # 12.5 K/mcL (1.6-8.9) H 06/10/17 03:27 Carbon Dioxide 31 mEq/L (19-29) H 06/10/17 03:27 Glucose 129 mg/dL (70-99) H 06/10/17 03:27 AST 91 Units/L (5-34) H 06/10/17 03:27 ALT 88 Units/L (0-55) H 06/10/17 03:27 Urine Blood Small (Negative) H 06/10/17 05:05 Ur Squamous Epith Cells Many per lpf (None-Few) H 06/10/17 05:05 All other labs normal.
[2017-06-10] MEDS ORDERED: Ondansetron 4 MG/2 ML VIAL IVP ONE (10:48)
[2017-06-10] MEDS ORDERED: *HR* Promethazine 25 MG/ML VIAL IVP PRN ×2 (10:48→13:16)
[2017-06-10] MEDS ORDERED: *HR* Labetalol 20 MG/4 ML SYRINGE IVP PRN (10:48)
[2017-06-10] MEDS ORDERED: *HR* Meperidine 25 MG/ML SYRINGE IVP PRN (10:48)
[2017-06-10] MEDS ORDERED: Bupivacaine/EPI 1:200k 0.25%PF 30 ML VIAL ONE (10:51)
[2017-06-10] MEDS ORDERED: *HR* Propofol 200 MG/20 ML VIAL IVP ONE ×2 (10:59→11:51)
[2017-06-10] MEDS ORDERED: Neostigmine Methylsulfate 3 MG/3 ML SYRINGE ONE (11:51)
[2017-06-10] MEDS ORDERED: Ondansetron 4 MG/2 ML VIAL ONE (11:51)
[2017-06-10] MEDS ORDERED: Dexamethasone 4 MG/ML VIAL ONE (11:51)
[2017-06-10] MEDS ORDERED: Lidocaine -MPF 2% 2 ML VIAL ONE (11:51)
[2017-06-10] MEDS ORDERED: *HR* FentaNYL (PF) 100 MCG/2 ML VIAL ONE ×2 (11:51)
[2017-06-10] MEDS ORDERED: *HR* Midazolam HCl 2 MG/2 ML VIAL ONE (11:51)
[2017-06-10] MEDS ORDERED: Ketorolac 30 MG/ML VIAL ONE (12:09)
[2017-06-10] MEDS: *HR* HYDROmorphone (PF) 1 MG/ML SYRINGE IVP PRN ×4 (12:23→12:45)
--- NOTE | 2017-06-10 12:24 | Operative Note ---
Date of procedure: 06/10/17 Pre-op diagnosis: acute cholecystitis, cholelithiasis Post-op diagnosis: other (acute cholecystitis, choledocholithiasis) Procedure: laparoscopic cholecystectomy with intra operative cholangiogram Complications: none apparent Anesthesia: GETA Local Anesthetics: 0.25% Sensorcaine HCL with Epinephrine 1:200,000 SubQ (cc) ( 30mL) Surgeon: Mahendra Knight Estimated blood loss (cc): 5 IV fluids (cc): 1,000 Specimen: gallbladder Condition: stable Disposition: PACU Procedure in Detail: The patient was brought to the operating room where she was placed supine upon the operating room table. Operative consent had been obtained preoperatively. The patient was appropriately identified as to person and procedure. The accuracy of this information was confirmed by the procedure team. The patient was intubated and anesthetized under the supervision of Dr. Jose Alfredo Russ. The abdomen was prepped and draped in the usual sterile fashion. Several milliliters of 0.25% bupivacaine with 1-200,000 epinephrine was infiltrated into the infraumbilical skin. A small transverse incision was made with dissection carried to the fascia. The fascia was grasped and elevated. Additional bupivacaine with epinephrine was infiltrated and then the fascia was incised. A 12 mm Xcel port was established. The rigid laparoscope was placed within the obturator to visualize passage through the layers of the anterior abdominal wall. When the abdominal cavity was accessed, the obturator was replaced by the rigid laparoscope. The abdomen was insufflated with carbon dioxide. There was no obvious visible injury from establishing the port. Under direct visualization, 3 additional ports were placed along the right costal margin in the subxiphoid, midclavicular and anterior axial lines. The gallbladder was retracted. There were adhesions of omentum and duodenum to the infundibulum and gallbladder. These adhesions were dissected with the aid of the Ethicon harmonic shine. Allowed exposure and dissection of the hepatoduodenal ligament. The cystic duct was identified, skeletonized and clipped near the infundibulum of the gallbladder. The cystic artery was identified, skeletonized, clipped twice proximally, and clipped once distally. Via a separate cutaneous insertion site , a Taut cholangiogram catheter was introduced. Cystic duct was incised, the cholangiogram catheter inserted and clipped. Using C-arm fluoroscopy a cholangiogram was then completed. This demonstrated a normal appearing hepatobiliary tree though a "meniscus sign" consistent with a stone lodged in the distal common duct was evident. A small amount of contrast flowed through to the duodenum. An intraoperative reading provided by [facility] also described findings consistent with a stone in the distal common duct. No other pathology was identified. The cholangiogram catheter was extracted. The cystic duct was clipped and divided. The cystic artery was divided at this time. The gallbladder was dissected from the liver bed using the Ethicon harmonic shine. It was apparent that the gallbladder wall was edematous. Once from the liver bed, the gallbladder was placed in an endoscopic pouch and removed through the infraumbilical opening. Gallbladder was retrieved and sent to pathology for analysis. The liver bed was inspected for adequate hemostasis prior to removing the instrumentation and evacuating the pneumoperitoneum. The fascia of the inferolateral opening was closed with interrupted [id number] 0 Vicryl using S retractors. The skin edges of the port sites were approximated with subcuticular 4-0 Vicryl. Incisions were sealed with Dermabond dermal adhesive. The patient was taken to recovery in stable condition. Needle, sponge, and instrument counts were correct at the close of the case. Total volume of 0.25 percent bupivacaine with 1-200,000 epinephrine used during this procedure, 30 mL. Postoperative consultation with Gastroenterology for ERCP is planned.
[2017-06-10] MEDS ORDERED: Ringers Solution, Lactated 500 ML IVC ONE (12:35)
--- NOTE | 2017-06-10 12:55 | Anesthesia Evaluation Post Op ---
Date of Encounter: 06/10/17 Time of Encounter: 12:54 - Vital Signs Vital Signs: Vital Signs/O2 Sat, Most Current Temp Pulse Resp BP Pulse Ox 98.4 F 91 16 121/76 99 06/10/17 12:17 06/10/17 12:37 06/10/17 12:37 06/10/17 12:37 06/10/17 12:37 - Lungs Lungs: Clear Ascult./Percussion - Airway Airway: Non-obstructed - Cardiovascular Regular Rate - Mental Status Mental Status: Alert & Oriented, Answers Appropriately - Pain Pain Scale: 0 (denies) Pain Scale used: Numeric (1 - 10) - Nausea Vomiting Nausea Vomiting: Not Present - Hydration Hydration: Ice chips - Discharge PostOp Status: Transfer Patient to floor
[2017-06-10] MEDS ORDERED: *HR* HYDROmorphone (PF) 1 MG/ML SYRINGE IVP PRN (13:16)
[2017-06-10] MEDS ORDERED: *HR* Promethazine 25 MG/ML VIAL ONE (13:37)
[2017-06-10] MEDS: Ringers Solution, Lactated 1,000 ML IVC SCH (15:29)
--- NOTE | 2017-06-10 16:21 | Gastroenterology Consult Note ---
<Pancho Aguero - Last Filed: 06/10/17 17:52> Date of Encounter: 06/10/17 Time of Encounter: 16:19 - Assessment and plan (1) Acute cholecystitis Current Visit: Yes Status: Acute Assessment and plan: Status post laparoscopic cholecystectomy Cholangiogram showed choledocholithiasis. (2) Choledocholithiasis Current Visit: Yes Status: Acute Assessment and plan: Cholangiogram showed choledocholithiasis. Plan for ERCP. Mild elevation of AST, ALTs. Total bilirubin within normal limits. No evidence of jaundice on exam. - Time Spent With Patient Total time spent is greater than 50% in coordination of care (as documented) at patient's floor/unit and/or counseling patient: GI History of Present Illness - Data of Consult Patient: new to practice Consult date: 06/10/17 Requesting Physician: Mahendra Knight - Consult Narrative Reason for consult: Choledocholithiasis History of present illness: Ms. Sewell is a 36 year old female presented with recurrent right upper quadrant abdominal pain. Patient has a history of cholecystitis and cholelithiasis and was scheduled to have laparoscopic cholecystectomy on 2016 however the past 24 hours she had diffuse right upper quadrant pain with nausea vomiting and underwent laparoscopic cholecystectomy today. There were no complications during the procedure. Cholangiogram showed evidence of cholelithiasis at the distal common bile duct. Currently patient denies abdominal pain, nausea, vomiting. States she has put on a diet but has not eaten. Past Med Surg Social Fam HX - Past Medical History Medical history: no medical history Psychiatric history: depression - Past Surgical History Surgical History: no surgical history - Social History Smoking Status: Never smoker Smokeless Tobacco Status: No Alcohol use: none Drug use: none - Family History Mother Living Status: Still Living Review of Systems: Constitutional: Denies fever, chills HEENT: Denies headache, vision changes, neck pain, sore throat, rhinorrhea Heart: Denies chest pain palpitations Lungs: Denies shortness of breath cough Abdomen: Reports abdominal pain, nausea, vomiting denies diarrhea. Back: Denies back pain Kidney: Denies dysuria, hematuria Skin: warm and dry Extremities: Denies swelling, pain Neuro: Denies numbness, and tingling - Constitutional Vitals: Temp Pulse Resp BP Pulse Ox 98.9 F 63 16 105/70 100 06/10/17 15:15 06/10/17 15:15 06/10/17 15:15 06/10/17 15:15 06/10/17 15:15 - Other Additional findings: General: Pleasant without distress HEENT: Head atraumatic, normocephalic, EOMI, PERRL, neck nontender to palpation , absent lymphadenopathy, Moist Mucous Membranes, absent jaundice Heart: Regular rate and rhythm with no murmur Lungs: Clear to auscultation bilaterally Abdomen: Soft nontender, nondistended. Absent bowel sounds. Skin: warm and dry. Absent jaundice Extremities: Absent pedal edema, Neuro: Cranial nerves II through XII intact, UE and LE sensation equal bilaterally, UE and LEstrength 5/5, alert oriented 3, Vascular: Pedal and radial pulses 2 out of 4 Results - Labs CBC & Chem 7: 06/10/17 03:27 06/10/17 03:27 Labs: Last Result Calcium 9.6 mg/dL (8.6-10.8) 06/10/17 03:27 Entire Visit Hgb 11.3 g/dL (11.5-15.4) L 06/10/17 03:27 Hct 37.2 % (35.3-44.9) 06/10/17 03:27 Total Bilirubin 0.6 mg/dL (0.2-1.2) 06/10/17 03:27 AST 91 Units/L (5-34) H 06/10/17 03:27 ALT 88 Units/L (0-55) H 06/10/17 03:27 Consult Discharge Plan - Plan Referrals: Leatha Hernandez MD [Primary Care Provider] - <Indra Escudero - Last Filed: 06/10/17 18:19> Date of Encounter: 06/10/17 Time of Encounter: 18:00 - Time Spent With Patient Total time spent is greater than 50% in coordination of care (as documented) at patient's floor/unit and/or counseling patient: GI History of Present Illness - Data of Consult Requesting Physician: Mahendra Knight - Consult Narrative History of present illness: Ms. Sewell is a 36 year old female - Constitutional Vitals: Temp Pulse Resp BP Pulse Ox 98.2 F 69 12 119/72 96 06/10/17 16:10 06/10/17 16:10 06/10/17 16:10 06/10/17 16:10 06/10/17 16:10 Results - Labs CBC & Chem 7: 06/10/17 03:27 06/10/17 03:27 Labs: Last Result Calcium 9.6 mg/dL (8.6-10.8) 06/10/17 03:27 Entire Visit Hgb 11.3 g/dL (11.5-15.4) L 06/10/17 03:27 Hct 37.2 % (35.3-44.9) 06/10/17 03:27 Total Bilirubin 0.6 mg/dL (0.2-1.2) 06/10/17 03:27 AST 91 Units/L (5-34) H 06/10/17 03:27 ALT 88 Units/L (0-55) H 06/10/17 03:27 - Attending Attestation I examined this patient and my medical decision-making was reviewed with the Resident Physician. I agree with the documented findings, disposition and treatment plan as described except to the extent set forth below. Patient status post cholecystectomy no IOC showing truncation of the distal common bile duct with possible filling defect. LFTs mildly elevated. Will repeat LFTs in the morning and if there is significant rise then she will need an ERCP
[2017-06-10] MEDS: Acetaminophen 325 MG TABLET PO PRN (16:29)
[2017-06-10] MEDS: Prenatal Vit/FA 1 EACH TABLET PO SCH (16:31)
[2017-06-10] MEDS: *HR* HYDROcodone/Acet 5/325 mg TABLET PO PRN (20:23)
[2017-06-11] MEDS: Ringers Solution, Lactated 1,000 ML IVC SCH (04:43)
[2017-06-11 06:29] LABS: Albumin 3.4 g/dL (3.5-5.0); Bilirubin,Direct 0.2 mg/dL (0.0-0.5); Bilirubin,Indirect 0.3 mg/dL (0.0-1.2); Bilirubin,Total 0.5 mg/dL (0.2-1.2); Globulin 3.3 g/dL (2.4-3.5); Total Protein 6.7 g/dL (6.0-8.3)
[2017-06-11] MEDS: *HR* HYDROcodone/Acet 5/325 mg TABLET PO PRN ×2 (09:13→19:58)
[2017-06-11] MEDS: Prenatal Vit/FA 1 EACH TABLET PO SCH (09:13)
--- NOTE | 2017-06-11 14:32 | General Surgery Progress Note ---
Date of Encounter: 06/11/17 Time of Encounter: 14:15 Subjective Narrative: General Surgery - POD #1 Patient feeling well. Patient had interscapular back pain immediately postop but that appears to have resolved. She had also experienced some epigastric bloating and "gas pains" but those to have diminished. No fever, chills, nausea/vomiting. Pain is easily controlled. The patient is afebrile, currently 98.6 with a pulse of 72, respirations 16, blood pressure 119/84. His PO2 on room air 96%. Lungs: Clear to auscultation Abdomen: Soft, minimal tenderness at the port sites, particularly the infraumbilical port site. All ports are clean and dry. Patient is tolerating a regular diet but has been made nothing by mouth for a pending ERCP. Postop labs: Bilirubin 0.5, AST is elevated to 108 (previously 91) ALT has elevated to 196 (previously 88; alkaline phosphatase stable at 118. Intraoperative cholangiogram strongly suggestive of a stone in the distal common duct. ERCP is pending. Impression: Cholecystitis cholelithiasis with intraoperative cholangiogram demonstrating likely choledocholithiasis Postoperative day #1, status post laparoscopic cholecystectomy with intraoperative cholangiogram; acceptable postoperative status. Plan: ERCP which will be completed later today using general anesthesia Anticipate postoperative recovery requiring the remainder of the day/ night If patient does well and remains in stable condition, discharge home in a.m. This was discussed with the patient Objective Vital Signs - Last 8 Hours Temp Pulse Resp BP Pulse Ox 06/11/17 12:10 98.6 F 72 16 119/84 96 06/11/17 08:45 98.0 F 74 16 116/83 97 Intake and Output 06/10/17 06/11/17 06/11/17 23:59 07:59 15:59 Intake Total 600 / 600 1100 / 1100 600 / 600 Output Total 500 / 500 400 / 400 Balance 100 / 100 1100 / 1100 200 / 200 Intake: IV Fluids 1000 / 1000 Lactated Ringers 1,000 ML @ 75 1000 / 1000 mls/hr IVC .[id number] LOLI Rx#: [id number] Oral 600 / 600 100 / 100 600 / 600 Output: Urine 500 / 500 400 / 400 Other: Meal Dinner Percent of Meal Consumed 100% - Labs 06/10/17 03:27 06/10/17 03:27 Diabetes panel 06/11/17 Range/Units 05:44 AST 108 H (5-34) Units/L ALT 196 H (0-55) Units/L Alkaline Phosphatase 118 (38-126) Units/L Albumin 3.4 L (3.5-5.0) g/dL Calcium panel 06/11/17 Range/Units 05:44 Albumin 3.4 L (3.5-5.0) g/dL Adrenal panel 06/11/17 Range/Units 05:44 Total Bilirubin 0.5 (0.2-1.2) mg/dL AST 108 H (5-34) Units/L ALT 196 H (0-55) Units/L Alkaline Phosphatase 118 (38-126) Units/L Albumin 3.4 L (3.5-5.0) g/dL - VTE Documentation of Mechanical Device: Intermittent pneumatic compression device Consult Discharge Plan - Plan Referrals: Leatha Hernandez MD [Primary Care Provider] -
[2017-06-11] MEDS ORDERED: Lidocaine -MPF 4% 5 ML AMPUL ONE (16:28)
[2017-06-11] MEDS ORDERED: Dexamethasone 4 MG/ML VIAL ONE (16:28)
[2017-06-11] MEDS ORDERED: *HR* Rocuronium Bromide 50 MG/5 ML VIAL ONE (16:28)
[2017-06-11] MEDS ORDERED: Ondansetron 4 MG/2 ML VIAL ONE (16:28)
[2017-06-11] MEDS ORDERED: *HR* Propofol 200 MG/20 ML VIAL IVP ONE (16:28)
[2017-06-11] MEDS ORDERED: Lidocaine -MPF 2% 2 ML VIAL ONE (16:28)
[2017-06-11] MEDS ORDERED: *HR* Midazolam HCl 2 MG/2 ML VIAL ONE (16:28)
[2017-06-11] MEDS ORDERED: *HR* FentaNYL (PF) 100 MCG/2 ML VIAL ONE (16:28)
--- NOTE | 2017-06-11 16:56 | Anesthesia Evaluation PreOp ---
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 Other Medical History: Denies Any Significant HX Anesthesia History: No Prior Anesthetic Complications, Past Anesthesia Test: Negative (06/10/2017) Alcohol Use: none Drug use: none Medications and Allergies Citalopram Hydrobromide [Celexa] 40 mg PO DAILY 04/19/17 [History] Vit/Iron Fumarate/FA [ Tablet] 1 each PO DAILY 04/19/17 [ History] Breast Pump [BREAST PUMP] 1 each .ROUTE AD #1 each 04/20/17 [Rx] Ibuprofen [Motrin] 600 mg PO Q6HR PRN #60 tab 04/20/17 [Rx] Dicyclomine [Bentyl] 20 mg PO QID PRN #20 capsule 05/16/17 [Rx] HYDROcodone/Acet 5/325 mg [[place] 5-325 mg] 1 - 2 tab PO Q4H PRN 7 Days #20 tab 05/16/17 [Rx] 3 Allergy/AdvReac Type Severity Reaction Status Date / Time doxycycline AdvReac Rash Verified 05/15/17 21:55 - Meds/Allergy Pre-op Review Medications Reviewed: Yes Allergies Reviewed: Yes Beta Blockers on Current Med List: No Anesthesia Results - Labs 06/10/17 03:27 06/10/17 03:27 Laboratory Tests 06/10/17 05:05 Urine Test Negative Anesthesia Exam Vital Signs/O2 Sat, Most Current Temp Pulse Resp BP Pulse Ox 98.6 F 72 16 119/84 96 06/11/17 12:10 06/11/17 12:10 06/11/17 12:10 06/11/17 12:10 06/11/17 12:10 Height: 5'7''/1.7 m Weight: 160 lbs/72.6 kg NPO (# of Hours): 8 Pain Scale: 3 Pain Scale Used: Numeric (1 - 10) - HEENT Pupil (Motor): EOMI Mallampati: II Teeth: Normal Oral Opening: Greater than 3 - BIOMETRY TEACHER LOC: Oriented BIOMETRY TEACHER Motor: Normal RUE, Normal LUE, Normal RLE, Normal LLE, Normal Face BIOMETRY TEACHER Sensory: Normal: RUE, LUE, RLE, LLE, Face - Cardiac Rhythm: Regular Murmur: None - Pulmonary Breath Sounds: bilateral Clear Respiratory Effort: Symmetrical Anesthesia Assess/Plan ASA Score: 1 Modified Parag Scale for Level of Consciousness: Cooperative, oriented, and tranquil Anesthetic Plan: General Monitoring Plan: Standard Monitors Recovery Plan: PACU
[2017-06-11] MEDS ORDERED: Albuterol 2.5 MG/3 ML NEBULIZER IH ONE (17:16)
[2017-06-11] MEDS ORDERED: Ondansetron 4 MG/2 ML VIAL IVP ONE (17:16)
[2017-06-11] MEDS ORDERED: Naloxone 0.4 MG/ML INJ IVP PRN (17:16)
[2017-06-11] MEDS ORDERED: *HR* HYDROmorphone (PF) 1 MG/ML SYRINGE IVP PRN (17:16)
[2017-06-11] MEDS ORDERED: Ringers Solution, Lactated 1,000 ML IVC SCH ×2 (17:30→18:45)
[2017-06-11] MEDS ORDERED: Indomethacin 50 MG SUPP.RECT RC ONE (17:38)
--- NOTE | 2017-06-11 18:12 | Anesthesia Evaluation Post Op ---
Date of Encounter: 06/11/17 Time of Encounter: 18:11 - Vital Signs Vital Signs: Vital Signs/O2 Sat, Most Current Temp Pulse Resp BP Pulse Ox 98.3 F 68 14 137/96 96 06/11/17 17:46 06/11/17 18:06 06/11/17 18:06 06/11/17 18:06 06/11/17 18:06 - Lungs Lungs: Clear Ascult./Percussion - Airway Airway: Non-obstructed - Cardiovascular Regular Rate - Mental Status Mental Status: Alert & Oriented, Answers Appropriately - Pain Pain Scale: 0 Pain Scale used: Numeric (1 - 10) - Nausea Vomiting Nausea Vomiting: Not Present - Hydration Hydration: Ice chips, Has not voided - Discharge PostOp Status: Transfer Patient to floor
[2017-06-12 04:32] LABS: Basophils % 0.1 %; Eosinophils # 0.1 K/mcL (0.0-0.6); Eosinophils % 0.6 %; Hematocrit 34.3 % (35.3-44.9); Hemoglobin 10.5 g/dL (11.5-15.4); Immature Granulocytes % 0.2 % (0-4); Lymphocytes # 1.7 K/mcL (0.6-4.6); Mean Corpuscular HGB Conc 30.6 g/dL (31.6-35.5); Mean Corpuscular Hemoglobin 25.1 pg (28.0-33.3); Mean Corpuscular Volume 82.1 fL (83.0-100.0); Mean Platelet Volume 10.9 fL (9.4-12.4); Monocytes # 0.3 K/mcL (0.0-1.3); Neutrophils # 6.6 K/mcL (1.6-8.9); Platelet Count 323 K/mcL (140-400); Red Blood Count 4.18 M/mcL (3.82-4.97); Segmented Neutrophils % 76.1 %
[2017-06-12 04:52] LABS: Alanine Aminotransferase 128 Units/L (0-55); Albumin 3.5 g/dL (3.5-5.0); Albumin/Globulin Ratio 1.1 (1.1-2.2); Alkaline Phosphatase 106 Units/L (38-126); Aspartate Amino Transferase 43 Units/L (5-34); BUN/Creatinine Ratio 15 (6-26); Bilirubin,Total 0.5 mg/dL (0.2-1.2); Blood Urea Nitrogen 9 mg/dL (7-20); Calcium 9.1 mg/dL (8.6-10.8); Carbon Dioxide 26 mEq/L (19-29); Chloride 105 mEq/L (98-109); Globulin 3.3 g/dL (2.4-3.5); Glucose 90 mg/dL (70-99); Osmolality,Calculated 286 (280-300); Potassium 3.9 mEq/L (3.5-4.5); Sodium 139 mEq/L (136-145); Total Protein 6.8 g/dL (6.0-8.3); eGFR For African Americans > 60 (> 60); eGFR For Non-African Americans > 60 (> 60)
[2017-06-12] MEDS: Prenatal Vit/FA 1 EACH TABLET PO SCH (07:59)
[2017-06-12] MEDS: Acetaminophen 325 MG TABLET PO PRN (08:04)
[2017-06-12 08:12] VITALS: BP 118/82
--- NOTE | 2017-06-12 10:43 | General Surgery Progress Note ---
Date of Encounter: 06/12/17 Time of Encounter: 10:36 Subjective Patient reports: feels better, pain is less, tolerating a regular diet Narrative: General Surgery - POD #2 Progress Note / Discharge Summary Postoperative day 2, status post laparoscopic cholecystectomy Postoperative day 1, status post ERCP with choledocholithotomy Patient feeling well; afeb, VSS - temperature 98.0, pulse 75, respirations 16, blood pressure 118/82 Tolerating diet, no nausea vomiting or postoperative diarrhea Lungs: Clear, no abdominal pain with deep inspiration Abdomen: Soft, minimal tenderness infraumbilical region consistent with laparoscopic surgery and removal of the gallbladder through the infraumbilical port. The prior complaints of interscapular pain resolved. Port sites clean and dry and healing well Laboratories: Leukocytosis resolved, 8.7; hemoglobin 10.5 with hematocrit 34.3 - likely due to perioperative fluids and some persistent anemia of ( patient proximally 7 weeks ) Electrolytes, BUN, creatinine within normal limits Bilirubin 0.5, AST has improved to 43, ALT has improved to 128, alkaline phosphatase 106 Impression: Postoperative day 2, status post laparoscopic cholecystectomy with intraoperative cholangiogram. Postoperative day #1, status post ERCP after the intraoperative cholangiogram demonstrated evidence choledocholithiasis distal common duct Postoperative status is excellent, the patient is ready for discharge Instructions: Regular diet as tolerated Patient may increase activity as tolerated; lifting limited to less than 20 pounds Patient may shower, wash incisions with soap and water Tylenol, ibuprofen, Motrin, Advil, Aleve, etc. as needed for pain Prescription for hydrocodone 5/325, #6, 1 every 6 hours as needed for pain not relieved by [id number] medications Follow-up my office, 06/20/17; patient to call office on Saturday to make this appointment. Patient may resume breast-feeding 24 hours after administration of anesthesia Objective Vital Signs - Last 8 Hours Temp Pulse Pulse Resp BP Pulse Ox 06/12/17 08:08 98.0 F 75 75 16 118/82 98 Intake and Output 06/11/17 06/12/17 06/12/17 23:59 07:59 15:59 Intake Total 700 / 700 Output Total 600 / 600 500 / 500 Balance -600 / -600 200 / 200 Intake: Oral 700 / 700 Output: Urine 600 / 600 500 / 500 - Labs 06/12/17 04:08 06/12/17 04:08 Diabetes panel 06/12/17 Range/Units 04:08 Sodium 139 (136-145) mEq/L Potassium 3.9 (3.5-4.5) mEq/L Chloride 105 (98-109) mEq/L Carbon Dioxide 26 (19-29) mEq/L BUN 9 (7-20) mg/dL Creatinine 0.62 (0.57-1.11) mg/dL Glucose 90 (70-99) mg/dL Calcium 9.1 (8.6-10.8) mg/dL AST 43 H (5-34) Units/L ALT 128 H (0-55) Units/L Alkaline Phosphatase 106 (38-126) Units/L Albumin 3.5 (3.5-5.0) g/dL Calcium panel 06/12/17 Range/Units 04:08 Calcium 9.1 (8.6-10.8) mg/dL Albumin 3.5 (3.5-5.0) g/dL Pituitary panel 06/12/17 Range/Units 04:08 Sodium 139 (136-145) mEq/L Potassium 3.9 (3.5-4.5) mEq/L Chloride 105 (98-109) mEq/L Carbon Dioxide 26 (19-29) mEq/L BUN 9 (7-20) mg/dL Creatinine 0.62 (0.57-1.11) mg/dL Glucose 90 (70-99) mg/dL Calcium 9.1 (8.6-10.8) mg/dL Adrenal panel 06/12/17 Range/Units 04:08 Sodium 139 (136-145) mEq/L Potassium 3.9 (3.5-4.5) mEq/L Chloride 105 (98-109) mEq/L Carbon Dioxide 26 (19-29) mEq/L BUN 9 (7-20) mg/dL Creatinine 0.62 (0.57-1.11) mg/dL Glucose 90 (70-99) mg/dL Calcium 9.1 (8.6-10.8) mg/dL Total Bilirubin 0.5 (0.2-1.2) mg/dL AST 43 H (5-34) Units/L ALT 128 H (0-55) Units/L Alkaline Phosphatase 106 (38-126) Units/L Albumin 3.5 (3.5-5.0) g/dL - VTE Documentation of Mechanical Device: Intermittent pneumatic compression device Consult Discharge Plan - Plan Referrals: Leatha Hernandez MD [Primary Care Provider] -
--- NOTE | 2017-06-12 10:48 | Discharge Summary ---
Outpatient Proc Discharge Plan - Plan Additional Instructions: Regular diet Patient may shower, wash incisions with soap and water Activities as tolerated; lifting limited to less than 20 pounds Patient may resume breast-feeding 24 hours after administration of anesthesia Follow-up my office, 06/20/70; patient call office on 06/17/17 to make this appointment Tylenol, ibuprofen, Motrin, Advil, Aleve, etc. as needed for pain Prescription for hydrocodone 5/325, #6, 1 every 6 hours as needed for pain not relieved by [id number] medications Prescriptions: HYDROcodone/Acet 5/325 mg [[place] 5-325 mg] 1 tab PO Q6H PRN #6 tablet PRN Reason: Pain Home Medications: Citalopram Hydrobromide [Celexa] 40 mg PO DAILY 04/19/17 [History] Vit/Iron Fumarate/FA [ Tablet] 1 each PO DAILY 04/19/17 [ History] Breast Pump [BREAST PUMP] 1 each .ROUTE AD #1 each 04/20/17 [Rx] Ibuprofen [Motrin] 600 mg PO Q6HR PRN #60 tab 04/20/17 [Rx] HYDROcodone/Acet 5/325 mg [[place] 5-325 mg] 1 - 2 tab PO Q4H PRN 7 Days #20 tab 05/16/17 [Rx] Acetaminophen [Tylenol] 650 mg PO Q6HR PRN tablet 06/12/17 [Rx] HYDROcodone/Acet 5/325 mg [[place] 5-325 mg] 1 tab PO Q6H PRN #6 tablet 06/12/17 [ Rx]
== END 2017-06-12 11:43 | disposition home or self-care (01) ==
LOC: EMEROO 02:44 → 3BNU 02:44 → 1NENUPED 06:36
PROVIDERS: ADMIT Surgery; ATTEND Surgery